=== PATIENT | male | born 1990 | race Two or more races ===

== ENCOUNTER 2022-06-15 01:20 | Emergency (ER) | payer OTHER ==
[2022-06-15] MEDS ORDERED: amLODIPine 5 MG Tab PO ONE ×2 (02:22→02:48)
[2022-06-15] MEDS ORDERED: Metoprolol Tartrate 50 MG Tab PO ONE (02:22)
== END 2022-06-15 02:47 | disposition home or self-care (01) ==
LOC: MW.ED 01:20
DX: I10 Essential (primary) hypertension (principal); Z79.899 Other long term (current) drug therapy
CPT/HCPCS: 99283; A9270